=== PATIENT | male | born 1945 | race Hispanic/Latino ===

== ENCOUNTER → 2025-01-17 | Day surgery (SDC) | payer MEDICARE, OTHER ==
[2025-01-10 11:49] LABS: BASOPHILS % 0.4 % (0.0-1.0); EOSINOPHILS % 0.6 % (0.0-6.0); LYMPHOCYTES % 40.1 % (18.0-39.1); MONOCYTES % 7.1 % (4.4-11.3); NEUTROPHILS % 51.5 % (38.7-80.0); RED CELL DISTRIBUTION WIDTH 12.6 % (11.7-14.4)
[~2025-01-17] MED LIST: ASPIRIN81 MG PO; FLOMAX0.4 MG PO; GLUCAGON FOR INJ 1 MG VIAL ONE; HYOSCYAMINE SULFATE 0.5 MG/ML INJ ONE; LIDOCAINE HCL 2% LOCAL INJ 5 ML SDV VIAL INJ ONE; LIPITOR10 MG PO; PROPOFOL IV EMULSION 10 MG/ML 20 ML VIAL ONE; REPATHA SY140 MG/1 M INJ
[2025-01-17] MEDS: LACTATED RINGER'S 1,000 ML ONE (06:46)
[2025-01-17 09:11] VITALS: TEMP 97.8
[2025-01-17 09:25] VITALS: BP 113/77; PULSE 75; RESP 15; O2SAT 95
== END | disposition home or self-care (01) ==
LOC: OR 05:45
PROVIDERS: ATTEND Internal Medicine Gastroenterology
DX: Z12.11 Encounter for screening for malignant neoplasm of colon (principal); D12.2 Benign neoplasm of ascending colon; K29.50 Unspecified chronic gastritis without bleeding; K22.70 Barrett's esophagus without dysplasia; K44.9 Diaphragmatic hernia without obstruction or gangrene; K21.9 Gastro-esophageal reflux disease without esophagitis; K57.30 Diverticulosis of large intestine without perforation or abscess without bleeding; K64.8 Other hemorrhoids; N40.0 Benign prostatic hyperplasia without lower urinary tract symptoms; E78.00 Pure hypercholesterolemia, unspecified; R05.3 Chronic cough; Z71.89 Other specified counseling; I25.10 Atherosclerotic heart disease of native coronary artery without angina pectoris; M54.2 Cervicalgia; M54.9 Dorsalgia, unspecified; M19.90 Unspecified osteoarthritis, unspecified site; M06.9 Rheumatoid arthritis, unspecified; Z01.812 Encounter for preprocedural laboratory examination; Z79.82 Long term (current) use of aspirin; Z79.899 Other long term (current) drug therapy; Z68.34 Body mass index [BMI] 34.0-34.9, adult; Z71.3 Dietary counseling and surveillance; Z95.5 Presence of coronary angioplasty implant and graft; Z91.81 History of falling; Z87.891 Personal history of nicotine dependence
CPT/HCPCS: 36415; 43239; 43450; 45385; 85025; J1610; J1980; J2003; J2470; J2704; J7121; 45378